=== PATIENT | male | born 1970 | race Asian ===

== ENCOUNTER 2024-11-21 10:28 | Emergency (ER) | payer OTHER ==
[~2024-11-21] VITALS: Ht 167.6 cm; Wt 70.8 kg
[2024-11-21 11:26] LABS: BASOPHILS # (AUTO) 0.1 K/UL (0.0-0.2); BASOPHILS % (AUTO) 0.6 % (0.0-2.0); EOSINOPHILS # (AUTO) 0.2 K/uL (0.0-0.7); EOSINOPHILS % (AUTO) 2.2 % (0.0-7.0); HEMATOCRIT 29.2 % (36.7-47.1); HEMOGLOBIN 9.7 g/dL (12.5-16.3); LYMPHOCYTES % (AUTO) 11.2 % (20.5-51.5); MEAN CORPUSCULAR HEMOGLOBIN 26.5 uug (23.8-33.4); MEAN CORPUSCULAR HGB CONC 33 g/dL (32.5-36.3); MEAN CORPUSCULAR VOLUME 79.4 fL (73.0-96.2); MONOCYTES # (AUTO) 0.6 K/uL (0.1-1.30); MONOCYTES % (AUTO) 7.3 % (0.0-11.0); NEUTROPHILS # (AUTO) 6.9 K/uL (1.8-8.9); NEUTROPHILS % (AUTO) 78.7 % (38.5-71.5); PLATELET COUNT (AUTO) 544 K/uL (152-348); RED BLOOD CELL COUNT(AUTO) 3.67 MIL/uL (4.06-5.63); RED CELL DISTRIBUTION WIDTH 13.7 % (12.1-16.2); WHITE BLOOD COUNT (AUTO) 8.7 K/uL (3.6-10.2)
[2024-11-21] MEDS ORDERED: NIFE-34 PO (11:26)
[2024-11-21] MEDS ORDERED: ATOR40TA PO (11:26)
[2024-11-21] MEDS ORDERED: METF-442 PO (11:26)
[2024-11-21] MEDS ORDERED: LOSA1TAB39 PO (11:26)
[2024-11-21 11:27] LABS: DIFFERENTIAL COMMENT 1
[2024-11-21 11:32] LABS: CARBON DIOXIDE 27 mmol/L (21-32); CHLORIDE 106 mmol/L (98-107); CREATININE 1.6 mg/dL (0.6-1.3); GLUCOSE 124 mg/dL (74-106); POTASSIUM 3.9 mmol/L (3.5-5.1); SODIUM SERUM 144 mmol/L (136-145); UREA NITROGEN, BLOOD 30 mg/dL (7-18)
[2024-11-21 11:44] LABS: ALANINE AMINOTRANSFERASE 30 U/L (16-63); ALBUMIN 2.9 g/dL (3.4-5.0); ALKALINE PHOSPHATASE 56 U/L (50-136); ASPARTATE AMINOTRANSFERASE 28 U/L (15-37); BILIRUBIN,DIRECT 0.2 mg/dL (0.0-0.2); BILIRUBIN,TOTAL 0.4 mg/dL (0.2-1.0); NT-PRO BNP 864 pg/mL (0-125); TOTAL PROTEIN, SERUM 7.4 g/dL (6.4-8.2)
[2024-11-21 12:03] LABS: *BILIRUBIN,URIN NEGATIVE (NEGATIVE); *BLOOD, URINE 2+ (NEGATIVE); *CLARITY,URINE CLEAR (CLEAR); *COLOR,URINE YELLOW (YELLOW); *KETONES,URINE NEGATIVE (NEGATIVE); *PROTEIN,URINE 3+ (NEGATIVE); *UROBILINOGEN,URINE 0.2 E.U./dl (NORMAL); LEUKOCYTE ESTERASE ,URINE NEGATIVE (NEGATIVE); NITRITE, URINE NEGATIVE (NEGATIVE); PH,URINE 5.5 (5.0-8.0); UGLUCOSE TRACE (NEGATIVE)
[2024-11-21 12:04] LABS: BACTERIA,URINE FEW /HPF (NONE SEEN); RBC,URINE 20-50 /HPF (0-3); URINE AMORPHOUS URATE FEW /HPF; WBC,URINE 0-3 /HPF (0-3)
[2024-11-21 12:42] VITALS: BP 162/85; TEMP 97.8; O2SAT 98
== END 2024-11-21 12:30 | disposition home or self-care (01) ==
LOC: ER 10:28
DX: R31.9 Hematuria, unspecified (principal); I12.9 Hypertensive chronic kidney disease with stage 1 through stage 4 chronic kidney disease, or unspecified chronic kidney disease; E11.22 Type 2 diabetes mellitus with diabetic chronic kidney disease; N18.9 Chronic kidney disease, unspecified; E78.5 Hyperlipidemia, unspecified; R74.8 Abnormal levels of other serum enzymes; Z79.84 Long term (current) use of oral hypoglycemic drugs; Z79.899 Other long term (current) drug therapy
CPT/HCPCS: 36415; 84484; 85025; A4606; A4663

== ENCOUNTER 2025-08-01 11:55 | Emergency (ER) | payer OTHER ==
[~2025-08-01] VITALS: Ht 170.2 cm; Wt 67.6 kg
[~2025-08-01 11:55] MED LIST: ATOR40TA PO; LOSA1TAB39 PO; METF-442 PO; NIFE-34 PO
[2025-08-01 12:07] VITALS: BP 166/85
[2025-08-01] MEDS ORDERED: OLOP5DRO27 EACHEYE (12:39)
[2025-08-01] MEDS ORDERED: [UNRECOGNIZED DRUG - CODE] PO (12:39)
[2025-08-01 12:46] VITALS: BP 166/85; TEMP 97.9; O2SAT 99
== END 2025-08-01 12:47 | disposition home or self-care (01) ==
LOC: ER 12:03
DX: T78.49XA Other allergy, initial encounter (principal); I10 Essential (primary) hypertension; E11.9 Type 2 diabetes mellitus without complications; Z79.84 Long term (current) use of oral hypoglycemic drugs; Z79.899 Other long term (current) drug therapy; Y92.89 Other specified places as the place of occurrence of the external cause
CPT/HCPCS: A4606; A4663

== ENCOUNTER 2025-08-17 11:11 | Emergency (ER) | payer OTHER ==
[~2025-08-17] VITALS: Ht 167.6 cm; Wt 67.1 kg
[2025-08-17 11:11] VITALS: BP 137/78
[~2025-08-17 11:11] MED LIST changes: +OLOP5DRO27 EACHEYE; +[UNRECOGNIZED DRUG - CODE] PO
[2025-08-17] MEDS ORDERED: TRIA80OI TP (12:32)
[2025-08-17] MEDS ORDERED: FLAS1KIT2 TP (12:39)
[2025-08-17] MEDS ORDERED: FLAS1EAC2 TP (12:39)
[2025-08-17 12:41] VITALS: BP 132/78; TEMP 208.2; O2SAT 97
== END 2025-08-17 12:44 | disposition home or self-care (01) ==
LOC: ER 11:11
DX: T78.40XA Allergy, unspecified, initial encounter (principal); I51.9 Heart disease, unspecified; E11.9 Type 2 diabetes mellitus without complications; E78.00 Pure hypercholesterolemia, unspecified; Z79.84 Long term (current) use of oral hypoglycemic drugs; Z79.899 Other long term (current) drug therapy
CPT/HCPCS: A4606; A4663